=== PATIENT | female | born 1940 | race Caucasian/White ===

== ENCOUNTER → 2016-09-19 06:33 | Day surgery (SDC) | payer MEDICARE ==
--- NOTE | 2016-09-18 00:53 | HP ---
ADMITTING HISTORY AND PHYSICAL: DATE OF ADMISSION: 09/19/16 AGE: 76 years. SEX: Female. ADMITTING DIAGNOSES: 1. Hematuria. 2. Bilateral renal calculi. PLANNED PROCEDURES: Left ureteroscopy, pyeloscopy, possible laser lithotripsy, and left stent insertion. SURGEON: Warner Hernandez MD ADMITTING HISTORY AND PHYSICAL: Lu Vasquez is a 76-year-old lady with morbid obesity who has been noted to have bilateral large renal calculi. She has been having episodic gross hematuria while she had been on the Xarelto and now even while she is off the Xarelto. In addition, she had an episode of left flank pain and is known to have a 15- to 16-mm fairly large calculus in the left renal pelvis. In addition, she has multiple right renal calculi also. She is now being brought in for management of the left renal calculi. Because of the large size and multiple number of calculi, I have explained to her that she may require multiple procedures in an effort to try and render her stone free. PAST MEDICAL HISTORY: Significant for: 1. Hypertension. 2. Peripheral venous insufficiency. 3. Hypercholesterolemia. 4. Sleep apnea. MEDICATIONS ON ADMISSION: 1. Lopressor 100 mg twice a day. 2. Avapro 300 mg daily. 3. Simvastatin 40 mg daily. 4. Vitamin E 400 units daily. 5. Procardia XL 30 mg daily. 6. Aspirin 81 mg a day. 7. Hydrochlorothiazide 12.5 mg a day. ALLERGIES: 1. SULFA. 2. PENICILLIN. 3. INTRAVENOUSLY ADMINISTERED IODINATED CONTRAST. PHYSICAL EXAMINATION GENERAL: Exam reveals a pleasant overweight lady. VITAL SIGNS: Blood pressure is 138/92, pulse 64 per minute, and oxygen saturation 95% on room air. LUNGS: Clear bilaterally. CARDIOVASCULAR EXAM: Regular rate and rhythm. S1, S2. ABDOMEN: Obese with mild bilateral flank tenderness. IMPRESSION: A 76-year-old lady with episodic gross hematuria and recent left flank pain who has a large calculus in the left renal pelvis and additional bilateral renal calculi. PLAN/RECOMMENDATIONS: Planned procedure is ureteroscopy, pyeloscopy, and possible laser and left stent insertion. CC: Dakota Pritchard MD; Warner Hernandez MD * [id number]/[facility] #: [id number] [facility]
[~2016-09-19 06:33] MED LIST: Atracurium* 10 MG/ML 10 ML VIAL ONE; Atropine 1MG/ML INJ* 1 ML VIAL ONE; Buffered Lidocaine 1% SYRIN* 3 ML/SYR SYRINGE INTRADERM ONE; DiMENhydriNATE IV* 50 MG/ML VIAL IV PUSH PRN; Furosemide IV* 10 MG/ML 2 ML VIAL (20 MG) ONE; Glycopyrrolate IV* 0.2 MG/ML 1 ML VIAL ONE; Iohexol 180 (CONTRAST) 10 ML SDV IV ONE; Levofloxacin 500 MG IVPREMIX(* 500 MG/100 ML BAG IVPB ONE; Midazolam* 1 MG/ML 2 ML VIAL (2 MG) ONE; Neostigmine Methylsulfate* 2 MG/2 ML SYRINGE ONE; Ondansetron INJ* 2 MG/ML VIAL IV PRN; Propofol* 10 MG/ML 20 ML BTL IV PUSH ONE; fentaNYL* 50 MCG/ML 2 ML VIAL (100 MCG VIAL) IV PRN; fentaNYL* 50 MCG/ML 2 ML VIAL (100 MCG VIAL) ONE; oxyCODONE/Acetamin 5/325 MG* TAB ONE
--- NOTE | 2016-09-19 10:09 | RAD ---
INDICATION: Bilateral urolithiasis. Bilateral retrograde pyelogram, LEFT ureteroscopy, laser lithotripsy, and stent placement. RIGHT stent placement. COMPARISON: August 10, 2016 CT. TECHNIQUE: 30 seconds fluoroscopy. FINDINGS: LEFT retrograde pyelogram demonstrates only mild calyceal blunting. LEFT ureteral stent placed. RIGHT retrograde pyelogram demonstrates moderate calyceal blunting. RIGHT ureteral stent placed. IMPRESSION: Procedural fluoroscopy. CPT II Codes: 6045F
[2016-09-19 12:09] VITALS: BP 152/86
--- NOTE | 2016-09-19 13:16 | RAD ---
Indication: Postop stent placement 2 views of the abdomen demonstrates bilateral ureteral stents in place. When compared to September 14, 2016 bowel gas pattern is otherwise unremarkable. IMPRESSION: Satisfactory placement of both ureteral stents.
--- NOTE | 2016-09-20 01:52 | OP ---
DATE OF OPERATION: 09/19/16 - [facility] DATE OF : 40 - AGE: 76 years, female SURGEON: Warner Hernandez MD ANESTHESIOLOGIST: Harrison Phelps MD ANESTHESIA: General. PRE-OP DIAGNOSES: 1. Bilateral renal calculi. 2. Gross hematuria. POST-OP DIAGNOSES: 1. Bilateral renal calculi. 2. Gross hematuria. OPERATIVE PROCEDURE: 1. Cystoscopy, left retrograde pyelogram, left ureteroscopy, left pyeloscopy, laser lithotripsy of multiple left renal calculi, and left stent insertion. 2. Right retrograde pyelogram and right stent insertion. INDICATIONS: Lu Vasquez is a 76-year-old lady with a history of bilateral renal calculi and episodic gross hematuria and bilateral flank pain. She is being brought in for management of the left-sided renal calculi today and my plan is to address the right side at a later date. COMPLICATIONS: None. STENT USED: 8.5-Greek 28-cm silicone stent, left side; 8-Greek stent, right side. OPERATIVE FINDINGS: 1. Edema and inflammation surrounding right orifice with right hydronephrosis and proximal hydroureter. 2. Multiple large renal calculi in upper pole, left kidney. POSTOPERATIVE CONDITION: Stable. DESCRIPTION OF PROCEDURE: After induction of general anesthesia, cystoscopy was performed. On examination, it was noted that there was considerable edema and inflammation surrounding the right orifice suggesting that there may be calculus within the right ureter. This was an unexpected finding and I addressed this after completion of the left side of the procedure as well following the dictation. Left retrograde pyelogram revealed multiple filling defects in the upper pole collecting system on the left side. There was no evidence of obstruction on the left side. An access sheath was introduced into the left ureter and then flexible ureteroscope was introduced. The flexible ureteroscope was advanced into the upper pole of the left kidney after completion of pyeloscopy and a cluster of multiple calculi were noted in the upper pole of the left kidney. Using the 370-micron holmium laser, these were fragmented and laser lithotripsy was successful as almost all of the stones broke up into multiple fragments. The stones had dark yellow color and may represent uric acid calculi. Once this was done, an 8.5-Greek, 28- cm silicone stent was introduced on the left side with good proximal and distal positioning obtained. Next, because of the inflammatory changes surrounding the right orifice, a right retrograde pyelogram was performed. This revealed right hydronephrosis with dilated tortuous proximal right ureter. An 8-Greek stent was introduced and positioned under fluoroscopy with good proximal and distal positioning obtained. My plan is to bring her back in a few weeks to try and do a ureteroscopy on the right side and try to address the stones on the right side. She may well require additional procedures for both sides as there are multiple large bilateral renal calculi. The patient tolerated the procedure satisfactorily and was transferred back to recovery area in stable condition. CC: Dr. Dakota Pritchard* [id number]/[facility] #: [id number] SANDI
== END | disposition home or self-care (01) ==
LOC: OR 06:33
PROVIDERS: ATTEND Urology
DX: N13.2 Hydronephrosis with renal and ureteral calculous obstruction (principal); R31.0 Gross hematuria; Z79.82 Long term (current) use of aspirin; G47.33 Obstructive sleep apnea (adult) (pediatric); E66.01 Morbid (severe) obesity due to excess calories; I10 Essential (primary) hypertension; E78.00 Pure hypercholesterolemia, unspecified; I73.9 Peripheral vascular disease, unspecified; Z88.0 Allergy status to penicillin; Z91.041 Radiographic dye allergy status
CPT/HCPCS: 74000; 74420; A9270-GY; C1876; J0461; J1580; J1940; J1956; J2250; J2704; J3010

== ENCOUNTER 2016-10-26 07:26 | Day surgery (SDC) | payer MEDICARE ==
--- NOTE | 2016-10-04 08:06 | HP ---
ADMITTING HISTORY AND PHYSICAL: DATE OF ADMISSION/OPERATION: 10/26/16 ADMITTING DIAGNOSIS: Bilateral renal calculi. PLANNED PROCEDURE: Right ureteroscopy, pyeloscopy, possible laser and right stent replacement. SURGEON: Dr. Hernandez. ADMITTING HISTORY AND PHYSICAL: Lu Vasquez is a 76-year-old lady with bilateral large renal calculi and recurrent episodes of hematuria. She had undergone treatment of multiple left renal calculi and at that time had also undergone right stent insertion. She subsequently underwent left stent removal on October 03 in my office and is now being brought in for management of the right-sided calculi. PAST MEDICAL HISTORY: Significant for: 1. Renal calculi. 2. Hypercholesterolemia. 3. Hypertension. 4. Peripheral venous insufficiency. 5. Sleep apnea. MEDICATIONS ON ADMISSION: 1. Potassium citrate 20 mEq twice a day. 2. Lopressor 100 mg b.i.d. 3. Simvastatin 40 mg a day. 4. Avapro 300 mg once a day. 5. Procardia XL 30 mg daily. 6. Aspirin 81 mg a day. 7. Vitamin E 400 units daily. 8. Hydrochlorothiazide 12.5 mg a day. ALLERGIES AND INTOLERANCES: SULFA, INTRAVENOUSLY ADMINISTERED IODINATED CONTRAST, PENICILLIN. PHYSICAL EXAMINATION GENERAL: Reveals a pleasant, morbidly obese lady. VITAL SIGNS: Blood pressure is 140/90, pulse 55 per minute, oxygen saturation 97%, and temperature 96.5. LUNGS: Clear bilaterally. CARDIOVASCULAR: Regular rate and rhythm. S1, S2. ABDOMEN: Soft with bilateral flank tenderness. IMPRESSION: A 76-year-old lady who had previously undergone treatment of left - sided calculi and is now being brought in for right ureteroscopy, pyeloscopy, possible laser and stent replacement. CC: Dr. Pritchard; Dr. Hernandez* [id number]/[facility] #: [id number] [facility]
[~2016-10-26 07:26] MED LIST changes: -Atracurium* 10 MG/ML 10 ML VIAL ONE; -Atropine 1MG/ML INJ* 1 ML VIAL ONE; +Dexamethasone IV* 4 MG/ML 1 ML (4 MG) IV SLOW PU ONE; -DiMENhydriNATE IV* 50 MG/ML VIAL IV PUSH PRN; +Famotidine IV* 10 MG/ML 2 ML (20 mg) IV ONE; -Furosemide IV* 10 MG/ML 2 ML VIAL (20 MG) ONE; -Glycopyrrolate IV* 0.2 MG/ML 1 ML VIAL ONE; -Iohexol 180 (CONTRAST) 10 ML SDV IV ONE; -Levofloxacin 500 MG IVPREMIX(* 500 MG/100 ML BAG IVPB ONE; -Midazolam* 1 MG/ML 2 ML VIAL (2 MG) ONE; -Neostigmine Methylsulfate* 2 MG/2 ML SYRINGE ONE; -Ondansetron INJ* 2 MG/ML VIAL IV PRN; -Propofol* 10 MG/ML 20 ML BTL IV PUSH ONE; -fentaNYL* 50 MCG/ML 2 ML VIAL (100 MCG VIAL) IV PRN; -fentaNYL* 50 MCG/ML 2 ML VIAL (100 MCG VIAL) ONE; -oxyCODONE/Acetamin 5/325 MG* TAB ONE
[2016-10-26] MEDS ORDERED: HYDROmorphone* 1 MG/ML 1 ML SYR ONE ×2 (07:33→09:46)
[2016-10-26] MEDS ORDERED: fentaNYL* 50 MCG/ML 2 ML VIAL (100 MCG VIAL) ONE ×3 (07:33→11:11)
[2016-10-26] MEDS ORDERED: Midazolam* 1 MG/ML 5 ML VIAL (5 MG) ONE (07:37)
[2016-10-26] MEDS ORDERED: Ondansetron INJ* 2 MG/ML VIAL ONE (07:52)
[2016-10-26] MEDS ORDERED: Propofol* 10 MG/ML 20 ML BTL IV PUSH ONE (07:52)
[2016-10-26] MEDS ORDERED: Lidocaine 2% PF * 5 ML VIAL ONE (07:52)
[2016-10-26] MEDS ORDERED: Ketorolac INJ* 30 MG/ML 1 ML VIAL ONE (07:52)
[2016-10-26] MEDS ORDERED: Succinylcholine* 20 MG/ML 10 ML VIAL ONE (07:52)
[2016-10-26] MEDS ORDERED: Famotidine IV* 10 MG/ML 2 ML (20 mg) ONE (08:08)
[2016-10-26] MEDS ORDERED: Dexamethasone IV* 4 MG/ML 1 ML (4 MG) ONE (08:08)
[2016-10-26] MEDS ORDERED: Dexmedetomidine* 200 MCG/2 ML 2 ML VIAL ONE (08:43)
[2016-10-26] MEDS ORDERED: Levofloxacin 500 MG IVPREMIX(* 500 MG/100 ML BAG IVPB ONE (09:04)
[2016-10-26] MEDS ORDERED: Iohexol 180 (CONTRAST) 10 ML SDV IV ONE (09:12)
[2016-10-26] MEDS ORDERED: Meperidine SYRINGE* 50 MG/ML ONE (10:01)
[2016-10-26] MEDS ORDERED: Ondansetron INJ* 2 MG/ML VIAL IV PRN (11:33)
[2016-10-26] MEDS ORDERED: PROCHLORPERAZINE INJ 5 MG/ML 2 ML VIAL IV PRN (11:33)
[2016-10-26] MEDS ORDERED: HYDROmorphone* 1 MG/ML 1 ML SYR IV PRN (11:33)
[2016-10-26] MEDS ORDERED: DiMENhydriNATE IV* 50 MG/ML VIAL IV PUSH PRN (11:33)
[2016-10-26] MEDS ORDERED: fentaNYL* 50 MCG/ML 2 ML VIAL (100 MCG VIAL) IV PRN (11:33)
[2016-10-26 13:33] VITALS: BP 146/60
--- NOTE | 2016-10-27 01:18 | OP ---
DATE OF OPERATION: 10/26/16 - [facility] DATE OF : 40 - AGE: 76 years, female. SURGEON: Warner Hernandez MD ANESTHESIOLOGIST: Dr. Burnett. ANESTHESIA: General. PRE-OP DIAGNOSIS: Multiple right renal calculi. POST-OP DIAGNOSIS: Multiple right renal calculi. OPERATIVE PROCEDURE: 1. Cystoscopy right retrograde pyelogram. 2. Right ureteroscopy. 3. Right pyeloscopy. 4. Laser lithotripsy of multiple right renal calculi and right stent insertion. COMPLICATIONS: None. STENT USED: 8.5 Prydeinig 28 cm silicone stent, right ureter. OPERATIVE FINDINGS: Multiple large calculi in upper pole calyx, right kidney. INDICATIONS: Lu Vasquez is a 76-year-old lady who was evaluated and noted to have bilateral renal calculi. She had previously undergone successful treatment of left- sided renal calculi and is now being brought in for management of multiple right renal calculi. DESCRIPTION OF PROCEDURE: After induction of general anesthesia, the patient was placed in dorsal lithotomy position. Sequential compression devices were in place and functioning. Initial cystoscopy revealed a previously placed stent exiting from the right orifice and this was removed intact without difficulty. Retrograde pyelogram revealed mild fullness of the right collecting system. First, a 6-Prydeinig semirigid ureteroscope was introduced and advanced under direct vision into the renal pelvis, but I could not visualize any calculi in the ureter or renal pelvis. Next, an access sheath was introduced and through this, a flexible ureteroscope was advanced into the right kidney. In an upper pole calyx, there were multiple large calculi noted. These had an appearance consistent with uric acid calculi (dark yellow) and using a 370 micron laser, these were successfully fragmented. At the end of the procedure, the calculi appeared fragmented and I did not attempt to remove any of the fragments because of the very large number of stone fragments that were there. An 8.5 Prydeinig 28 cm silicone stent was introduced and positioned under fluoroscopy with good proximal and distal positioning obtained. The patient tolerated the procedure satisfactorily and was transferred back to the recovery area in stable condition. CC: Dr. Pritchard* [id number]/[facility] #: [id number] [facility]
--- NOTE | 2016-10-29 11:55 | RAD ---
CPT II Codes: 6045F Indication: Renal calculi Fluoroscopic services provided for referring physician. 37 seconds of fluoroscopy time was used. 12 spot images demonstrates placement of a right ureteral stent. Right retrograde hilar gram demonstrates right hydronephrosis. IMPRESSION: Fluoroscopic services provided for referring physician for right ureteral stent placement.
== END 2016-10-26 13:34 | disposition home or self-care (01) ==
LOC: OR 07:26
PROVIDERS: ATTEND Urology
DX: N20.0 Calculus of kidney (principal); I10 Essential (primary) hypertension; E78.00 Pure hypercholesterolemia, unspecified; G47.30 Sleep apnea, unspecified; I73.9 Peripheral vascular disease, unspecified; E66.01 Morbid (severe) obesity due to excess calories
CPT/HCPCS: 74420; C1876; J0330; J1100; J1170; J1580; J1885; J1956; J2250; J2405; J2704; J3010

== ENCOUNTER 2018-02-05 09:22 | Day surgery (SDC) | payer MEDICARE ==
[~2018-02-05 09:22] MED LIST changes: +Acetaminophen TAB* 325 MG PO PRN; +Buffered Lidocaine 0.9% SYRIN* 5 ML/SYR SYRINGE INTRADERM ONE; -Buffered Lidocaine 1% SYRIN* 3 ML/SYR SYRINGE INTRADERM ONE; -Dexamethasone IV* 4 MG/ML 1 ML (4 MG) IV SLOW PU ONE; -Famotidine IV* 10 MG/ML 2 ML (20 mg) IV ONE
[2018-02-05] MEDS ORDERED: Midazolam* 1 MG/ML 2 ML VIAL (2 MG) ONE ×2 (11:21→11:48)
[2018-02-05 12:17] VITALS: BP 152/55
[2018-02-05] MEDS ORDERED: acetaZOLAMIDE TAB* 250 MG ONE (14:40)
[2018-02-05] MEDS ORDERED: Proparacaine 0.5% OPHTH.SOL* 15 ML BTL ONE (14:40)
[2018-02-05] MEDS ORDERED: Cyclopentolate 1% OPTH.SOL* 2 ML BTL ONE (14:40)
[2018-02-05] MEDS ORDERED: Povidone Iodine 5% OPTH* 30 ML BTL ONE (14:40)
[2018-02-05] MEDS ORDERED: Lidocaine 1%* 5 ML VIAL ONE (14:40)
[2018-02-05] MEDS ORDERED: Neomycin/Polymy/Dex OPTH.SUSP* MAXITROL 0.1% 5 ML ONE (14:40)
[2018-02-05] MEDS ORDERED: Phenylephrine 2.5% OPTH.SOL* 2 ML BTL ONE (14:40)
[2018-02-05] MEDS ORDERED: Ketorolac 0.5% OPHTH (NF) 0.5 % 5 ML BTL ONE (14:40)
[2018-02-05] MEDS ORDERED: Lidocaine 2% EPI 1:200000 MPF*10-20 ML VIAL ONE (14:40)
--- NOTE | 2018-02-05 23:34 | OP ---
DATE OF OPERATION: 02/05/18 [facility] DATE OF : 40 SURGEON: Pietro Clark M.D. PREOPERATIVE DIAGNOSIS: Cataract, right eye. POSTOPERATIVE DIAGNOSIS: Cataract, right eye. OPERATIVE PROCEDURE: Extracapsular cataract extraction with intraocular lens implant right eye. DESCRIPTION OF PROCEDURE: The patient was brought to the operating room after being given 1/2% Alcaine with epinephrine drops in the preoperative area. The eye was prepped and draped in the usual sterile fashion. Sterile drape and eyelid speculum were placed. Again, topical 1/2% Alcaine with epinephrine was given. A paracentesis incision was made at the 9 o'clock position with the No.75 blade. Clear cornea incision 2.2 x 2.2-mm was created at the 12 o'clock position starting at the anterior limbus using the 2.2-mm keratome. The anterior chamber was irrigated with 0.4 mL of 1% non-preservative intracameral lidocaine and filled with DisCoVisc. A capsulorrhexis was completed using the cystotome and the Utrata forceps. Hydrodissection was performed with balanced salt solution. The lens nucleus was removed with the Phacoemulsification handpiece without incident. Cortex was removed with the irrigation-aspiration handpiece. The capsular bag was re-inflated using DisCoVisc and an SN60WF 22.5 implant was inserted with the shooter. The irrigation-aspiration handpiece was used to remove all residual DisCoVisc. The eye was refilled with balanced salt solution and the wound checked and found to be watertight. Topical Maxitrol drops were given. [id number]/[facility] #: [id number] [facility]
== END 2018-02-05 12:29 | disposition home or self-care (01) ==
LOC: OREAST 09:22
PROVIDERS: ATTEND Specialist
DX: H25.811 Combined forms of age-related cataract, right eye (principal); H53.021 Refractive amblyopia, right eye; I10 Essential (primary) hypertension; E78.00 Pure hypercholesterolemia, unspecified; Z88.0 Allergy status to penicillin; G47.33 Obstructive sleep apnea (adult) (pediatric)
CPT/HCPCS: A9270-GY; J2250; V2632

== ENCOUNTER 2018-02-12 09:26 | Day surgery (SDC) | payer MEDICARE ==
[~2018-02-12 09:26] MED LIST changes: +Midazolam* 1 MG/ML 5 ML VIAL (5 MG) ONE; +fentaNYL* 50 MCG/ML 2 ML VIAL (100 MCG VIAL) ONE
[2018-02-12 11:45] VITALS: BP 144/59
[2018-02-12] MEDS ORDERED: Povidone Iodine 5% OPTH* 30 ML BTL ONE (14:28)
[2018-02-12] MEDS ORDERED: Cyclopentolate 1% OPTH.SOL* 2 ML BTL ONE (14:28)
[2018-02-12] MEDS ORDERED: Lidocaine 1%* 5 ML VIAL ONE (14:28)
[2018-02-12] MEDS ORDERED: Lidocaine 2% EPI 1:200000 MPF*10-20 ML VIAL ONE (14:28)
[2018-02-12] MEDS ORDERED: Ketorolac 0.5% OPHTH (NF) 0.5 % 5 ML BTL ONE (14:28)
[2018-02-12] MEDS ORDERED: Neomycin/Polymy/Dex OPTH.SUSP* MAXITROL 0.1% 5 ML ONE (14:28)
[2018-02-12] MEDS ORDERED: acetaZOLAMIDE TAB* 250 MG ONE (14:28)
[2018-02-12] MEDS ORDERED: Phenylephrine 2.5% OPTH.SOL* 2 ML BTL ONE (14:28)
[2018-02-12] MEDS ORDERED: Proparacaine 0.5% OPHTH.SOL* 15 ML BTL ONE (14:29)
--- NOTE | 2018-02-13 10:34 | OP ---
OPERATIVE REPORT: DATE OF OPERATION: 02/12/18 - [facility] DATE OF : 40 SURGEON: Pietro Clark M.D. PRE-OP DIAGNOSIS: Cataract, left eye. POST-OP DIAGNOSIS: Cataract, left eye. OPERATIVE PROCEDURE: Extracapsular cataract extraction with intraocular lens implant, left eye. DESCRIPTION OF PROCEDURE: The patient was brought to the operating room after being given 1/2% Alcaine with epinephrine drops in the preoperative area. The eye was prepped and draped in the usual sterile fashion. Sterile drape and eyelid speculum were placed. Again, topical 1/2% Alcaine with epinephrine was given. A paracentesis incision was made at the 3 o'clock position with the No.75 blade. Clear cornea incision 2.2 x 2.2-mm was created at the 6 o'clock position starting at the anterior limbus using the 2.2-mm keratome. The anterior chamber was irrigated with 0.4 mL of 1% non-preservative intracameral lidocaine and filled with DisCoVisc. A capsulorrhexis was completed using the cystotome and the Utrata forceps. Hydrodissection was performed with balanced salt solution. The lens nucleus was removed with the Phacoemulsification handpiece without incident. Cortex was removed with the irrigation-aspiration handpiece. The capsular bag was re-inflated using DisCoVisc and an [id number] 21 implant was inserted with the shooter. The irrigation-aspiration handpiece was used to remove all residual DisCoVisc. The eye was refilled with balanced salt solution and the wound checked and found to be watertight. Topical Maxitrol drops were given. [id number]/[facility] #: [id number] MTDD
== END 2018-02-12 11:50 | disposition home or self-care (01) ==
LOC: OREAST 09:26
PROVIDERS: ATTEND Specialist
DX: H25.812 Combined forms of age-related cataract, left eye (principal); H53.021 Refractive amblyopia, right eye; I10 Essential (primary) hypertension; G47.33 Obstructive sleep apnea (adult) (pediatric); E78.5 Hyperlipidemia, unspecified; I87.2 Venous insufficiency (chronic) (peripheral); R60.9 Edema, unspecified
CPT/HCPCS: A9270-GY; J2250; J3010; V2632

== ENCOUNTER 2018-07-02 10:27 | Emergency (ER) | payer MEDICARE ==
--- NOTE | 2018-07-02 10:55 | ED ---
Laceration/Wound HPI - HPI Summary HPI Summary: 78 year old female presents with laceration to left elbow. States that she was walking to sign in for her wound care appointment and she tripped over the rug. She states she landed on her left elbow against the desk. She denies any head injury or loss consciousness. Denies any other pain. Has full range of motion of her elbow. No numbness or tingling. Denies any previous fracture to the area. She states she believes her tetanus up-to-date. Area is not actively bleeding. She is not on any blood thinners. - History of Current Complaint Stated Complaint: FELL, LAC ON ARM Time Seen by Provider: 07/02/18 10:40 Pain Intensity: 3 - Allergy/Home Medications Allergies/Adverse Reactions: Allergies Allergy/AdvReac Type Severity Reaction Status Date / Time Iodinated Contrast- Oral and Allergy Severe Anaphylatic Verified 07/02/18 10:28 IV Dye Shock Penicillins Allergy Unknown Unknown Verified 07/02/18 10:28 Reaction Details Sulfa (Sulfonamide Allergy Unknown Unknown Verified 07/02/18 10:28 Antibiotics) Reaction Details PMH/Surg Hx/FS Hx/Imm Hx Endocrine/Hematology History: Denies: Hx Diabetes Cardiovascular History: Reports: Hx Hypertension - on meds, Other Cardiovascular Problems/Disorders - hyperlipidemia, peripheral venous insufficiency Denies: Hx Valvular Heart Disease Respiratory History: Reports: Hx Sleep Apnea - c pap Denies: Other Respiratory Problems/Disorders GI History: Denies: Other GI Disorders History: Reports: Hx Kidney Stones - hx of bilateral renal calculi Musculoskeletal History: Reports: Hx Arthritis - finger Denies: Other Musculoskeletal History Sensory History: Reports: Hx Cataracts - no surgery yet, Hx Contacts or Glasses - glasses Denies: Hx Hearing Aid Opthamlomology History: Reports: Hx Cataracts - no surgery yet, Hx Contacts or Glasses - glasses Neurological History: Denies: Other Neuro Impairments/Disorders - Cancer History Cancer Type, Location and Year: skin none melanoma Hx Chemotherapy: No Hx Radiation Therapy: No - Surgical History Surgery Procedure, Year, and Place: umbilical hernia repair, 2001, [facility] [place]. appendectomy, [facility] [place], 2013. ureteral stent insertion August 2016 - [facility] [place] Hx Anesthesia Reactions: No Infectious Disease History: No Infectious Disease History: Denies: Traveled Outside the [place] in Last 30 Days - Family History Known Family History: Positive: Hypertension - Social History Alcohol Use: None Substance Use Type: Reports: None Smoking Status (MU): Never Smoked Tobacco Review of Systems Negative: Fever Negative: Chest Pain Negative: Shortness Of Breath Positive: Other - abrasion left elbow All Other Systems Reviewed And Are Negative: Yes Physical Exam Triage Information Reviewed: Yes Vital Signs On Initial Exam: Initial Vitals Temp Pulse Resp BP Pulse Ox 98.3 F 60 16 164/61 95 07/02/18 10:28 07/02/18 10:28 07/02/18 10:28 07/02/18 10:28 07/02/18 10:28 Vital Signs Reviewed: Yes Appearance: Positive: Well-Appearing Skin: Positive: Warm, Dry, Other - abrasion on left elbow Head/Face: Positive: Normal Head/Face Inspection Eyes: Positive: Normal, Conjunctiva Clear ENT: Positive: Pharynx normal Respiratory/Lung Sounds: Positive: Clear to Auscultation, Breath Sounds Present Cardiovascular: Positive: Normal, RRR Musculoskeletal: Positive: Strength/ROM Intact - left elbow, Other - good pulses , nontender left elbow Neurological: Positive: Normal Psychiatric: Positive: Normal Procedures - Laceration/Wound Repair 1 Location: Other - left elbow Description: Irregular Length, Depth and Shape: 3cm by 2cm abrasion Irrigated w/ Saline (ccs): 100 Closure: Skin Adhesive, SteriStrips Diagnostics - Vital Signs Vital Signs Temp Pulse Resp BP Pulse Ox 07/02/18 10:28 98.3 F 60 16 164/61 95 - Laboratory Lab Statement: Any lab studies that have been ordered have been reviewed, and results considered in the medical decision making process. Laceration Repair Course/Dx - Course Course Of Treatment: 78 year old female presents with laceration to left elbow. States that she was walking to sign in for her wound care appointment and she tripped over the rug. She states she landed on her left elbow against the desk. She denies any head injury or loss consciousness. Denies any other pain. Has full range of motion of her elbow. No numbness or tingling. Denies any previous fracture to the area. She states she believes her tetanus up-to- date. Area is not actively bleeding. She is not on any blood thinners. On exam has recently 2 cm by 3cm abrasion to left elbow. Full range of motion. Neurovascular intact. Clean area and place glue and Steri-Strips. Told to keep the area clean and dry. Patient declined x-ray. Told anything changes to return. Patient understands agrees plan. - Clinical Impression Provider Diagnoses: Abrasion of left elbow Discharge - Sign-Out/Discharge Documenting (check all that apply): Patient Departure - Discharge Plan Condition: Good Disposition: HOME Patient Education Materials: Skin Adhesive Care (ED) Referrals: Dakota Pritchard MD [Primary Care Provider] - Additional Instructions: Place ice on area Take Tylenol for pain as needed every 6 hours Keep as dry as possible for 24 hours Glue will fall off on own Avoid scrubbing area Return to ED if develop any signs of infection or any new or worsening symptoms - Billing Disposition and Condition Condition: GOOD Disposition: Home
[2018-07-02 11:36] VITALS: BP 150/64
== END 2018-07-02 11:35 | disposition home or self-care (01) ==
LOC: ED 10:27
DX: S51.012A Laceration without foreign body of left elbow, initial encounter (principal); W01.0XXA Fall on same level from slipping, tripping and stumbling without subsequent striking against object, initial encounter; Y93.01 Activity, walking, marching and hiking; Y92.238 Other place in hospital as the place of occurrence of the external cause; I10 Essential (primary) hypertension; Z88.0 Allergy status to penicillin; Z88.2 Allergy status to sulfonamides; Z91.041 Radiographic dye allergy status
CPT/HCPCS: 12002; 99282

== ENCOUNTER 2021-06-14 12:22 | Inpatient (IN) ==
[2021-06-14 15:58] LABS: ABS Lymphocytes 0.5 10^3/ul (1.0-4.8); ABS Monocytes 1.1 10^3/ul (0-0.8); ABS Neutrophils 9.5 10^3/ul (1.5-7.7); Eosinophil % 0.2 %; Hematocrit 42 % (35-47); Hemoglobin 13.5 g/dL (12.0-16.0); Lymphocyte % 4.4 %; Mean Corpuscular HGB Conc 33 g/dL (31-36); Mean Corpuscular Hemoglobin 29 pg (27-31); Mean Corpuscular Volume 89 fL (80-97); Mean Platelet Volume 7.5 fL (7.4-10.4); Platelet Count 259 10^3/uL (150-450); Red Blood Count 4.67 10^6 /uL (3.70-4.87); Red Cell Distribution Width 16 % (10-15)
[2021-06-14 16:23] LABS: Troponin I 0.13 ng/mL (<0.03)
[2021-06-14 16:27] LABS: ALT 82 U/L (7-52); AST 125 U/L (13-39); Albumin 2.8 g/dL (3.2-5.2); Alkaline Phosphatase 75 U/L (35-149); Anion Gap 8 mmol/L (2-11); Blood Urea Nitrogen 40 mg/dL (6-24); CO2 Carbon Dioxide 25 mmol/L (22-32); Calcium 8.4 mg/dL (8.6-10.3); Chloride 108 mmol/L (101-111); Globulin 2.8 g/dL (2-4); Glucose 105 mg/dL (70-100); Magnesium 2.3 mg/dL (1.9-2.7); Potassium 3.8 mmol/L (3.5-5.0); Sodium 141 mmol/L (135-145); Total Protein 5.6 g/dL (6.4-8.9); eGFR CKD-EPI 34.5 (>60)
[2021-06-14 16:42] LABS: TSH Ultra Thyroid Stim Horm 1.14 mcIU/mL (0.34-5.60)
[2021-06-14] MEDS ORDERED: Lactated Ringers 1000 ml BAG 1,000 ML IV ONE (17:31)
[2021-06-14 18:56] LABS: Troponin I 0.11 ng/mL (<0.03)
[2021-06-14 18:57] LABS: Creatine Kinase 2726 U/L (10-223)
[2021-06-14 21:22] LABS: Troponin I 0.08 ng/mL (<0.03)
[2021-06-14] MEDS: Enoxaparin 40 MG/0.4 ML SYR SUBCUT SCH (22:42)
[2021-06-15] MEDS: CMCS: Simvastatin 20 mg TAB (NF) PO SCH ×2 (00:09→22:34)
[2021-06-15] MEDS ORDERED: Clindamycin 600 MG/D5W BAG IV SCH (05:00)
[2021-06-15 05:51] LABS: ABS Lymphocytes 0.5 10^3/ul (1.0-4.8); ABS Monocytes 1.1 10^3/ul (0-0.8); Eosinophil % 0.5 %; Hematocrit 35 % (35-47); Hemoglobin 11.4 g/dL (12.0-16.0); Lymphocyte % 6.1 %; Mean Corpuscular HGB Conc 33 g/dL (31-36); Mean Corpuscular Hemoglobin 29 pg (27-31); Mean Corpuscular Volume 89 fL (80-97); Mean Platelet Volume 7.8 fL (7.4-10.4); Platelet Count 221 10^3/uL (150-450); Red Blood Count 3.88 10^6 /uL (3.70-4.87); Red Cell Distribution Width 16 % (10-15); White Blood Count 8.7 10^3/uL (3.5-10.8)
[2021-06-15 06:04] LABS: Albumin 2.1 g/dL (3.2-5.2); Calcium 7.3 mg/dL (8.6-10.3); Potassium 3.6 mmol/L (3.5-5.0); Total Bilirubin 0.5 mg/dL (0.2-1.0)
[2021-06-15 06:10] LABS: Albumin/Globulin Ratio 1.1 (1-3); Total Protein 4.1 g/dL (6.4-8.9); eGFR CKD-EPI 38.1 (>60)
[2021-06-15] MEDS: Cholecalciferol (VIT D3) 1,000 unit TAB PO SCH (10:35)
[2021-06-15 19:17] LABS: Urine Appearance Cloudy; Urine Bilirubin Negative (Negative); Urine Blood 2+ (Negative); Urine Color Amber; Urine Glucose Negative (Negative); Urine Ketones Negative (Negative); Urine Nitrite Negative (Negative); Urine Protein Negative (Negative); Urine Specific Gravity 1.017 (1.002-1.030); Urine Urobilinogen Negative (Negative)
[2021-06-15 20:02] LABS: Urine Red Blood Cell 3+(>10/hpf) (Absent)
[2021-06-15 20:03] LABS: Urine Bacteria 2+ (Absent); Urine Squamous Epithelial Cell Present (Absent); Urine White Blood Cell 1+(6-10/hpf) (Absent)
[2021-06-15] MEDS: Enoxaparin 40 MG/0.4 ML SYR SUBCUT SCH (22:33)
[2021-06-16] MEDS: Bacitracin OINTMENT TUBE TOPICAL SCH ×2 (05:28→20:58)
[2021-06-16] MEDS: Collagenase 250 units/gm OINT 1 tube TOPICAL SCH ×2 (05:29→20:58)
[2021-06-16 06:41] LABS: ABS Eosinophils 0.1 10^3/ul (0-0.6); ABS Lymphocytes 0.6 10^3/ul (1.0-4.8); ABS Neutrophils 7.4 10^3/ul (1.5-7.7); Eosinophil % 1.6 %; Hematocrit 34 % (35-47); Hemoglobin 11.2 g/dL (12.0-16.0); Lymphocyte % 6.3 %; Mean Corpuscular HGB Conc 33 g/dL (31-36); Mean Corpuscular Hemoglobin 29 pg (27-31); Mean Corpuscular Volume 88 fL (80-97); Mean Platelet Volume 7.6 fL (7.4-10.4); Platelet Count 226 10^3/uL (150-450); Red Cell Distribution Width 16 % (10-15); White Blood Count 9.1 10^3/uL (3.5-10.8)
[2021-06-16 07:10] LABS: Calcium 7.2 mg/dL (8.6-10.3); Globulin 2.1 g/dL (2-4); Potassium 3.4 mmol/L (3.5-5.0); Total Bilirubin 0.4 mg/dL (0.2-1.0); Total Protein 4.1 g/dL (6.4-8.9); eGFR CKD-EPI 42.9 (>60)
[2021-06-16] MEDS ORDERED: Potassium Chlor 20 meq TAB.ER PO ONE (08:08)
[2021-06-16 10:15] LABS: Hepatitis B Surface Antigen Nonreactive (Nonreactive)
[2021-06-16 10:20] LABS: Hepatitis A Ab IgM Negative (Negative)
[2021-06-16 10:21] LABS: Hepatitis B Core IgM Nonreactive (Nonreactive)
[2021-06-16 10:33] LABS: Hepatitis C Antibody Negative (Negative)
[2021-06-16] MEDS: Cholecalciferol (VIT D3) 1,000 unit TAB PO SCH (10:56)
[2021-06-16] MEDS: CMCS: Simvastatin 20 mg TAB (NF) PO SCH (20:57)
[2021-06-16] MEDS: Enoxaparin 40 MG/0.4 ML SYR SUBCUT SCH (20:57)
[2021-06-17 07:10] LABS: Calcium 7.5 mg/dL (8.6-10.3); Potassium 3.9 mmol/L (3.5-5.0); eGFR CKD-EPI 49.4 (>60)
[2021-06-17 08:35] LABS: Ferritin 184.5 ng/mL (11-307)
[2021-06-17] MEDS: Cholecalciferol (VIT D3) 1,000 unit TAB PO SCH (08:40)
[2021-06-17] MEDS: Bacitracin OINTMENT TUBE TOPICAL SCH (08:42)
[2021-06-17] MEDS: Collagenase 250 units/gm OINT 1 tube TOPICAL SCH (13:59)
[2021-06-17] MEDS: CMCS: Simvastatin 20 mg TAB (NF) PO SCH (21:26)
[2021-06-17] MEDS: Enoxaparin 40 MG/0.4 ML SYR SUBCUT SCH (21:27)
[2021-06-18] MEDS: Cholecalciferol (VIT D3) 1,000 unit TAB PO SCH (08:50)
[2021-06-18] MEDS: Collagenase 250 units/gm OINT 1 tube TOPICAL SCH (08:52)
[2021-06-18] MEDS: Bacitracin OINTMENT TUBE TOPICAL SCH (08:52)
[2021-06-18 11:55] LABS: Calcium 7.4 mg/dL (8.6-10.3); Potassium 3.6 mmol/L (3.5-5.0); eGFR CKD-EPI 34.8 (>60)
[2021-06-18] MEDS ORDERED: NS 0.9% 1000 ml BAG 1,000 ML IV ONE (14:32)
[2021-06-18] MEDS: Enoxaparin 40 MG/0.4 ML SYR SUBCUT SCH (20:59)
[2021-06-18] MEDS: CMCS: Simvastatin 20 mg TAB (NF) PO SCH (20:59)
[2021-06-19 06:04] LABS: Calcium 7.3 mg/dL (8.6-10.3); Potassium 3.5 mmol/L (3.5-5.0); eGFR CKD-EPI 35.6 (>60)
[2021-06-19] MEDS: Cholecalciferol (VIT D3) 1,000 unit TAB PO SCH (08:38)
[2021-06-19] MEDS: Bacitracin OINTMENT TUBE TOPICAL SCH (08:39)
[2021-06-19] MEDS: Collagenase 250 units/gm OINT 1 tube TOPICAL SCH (08:40)
[2021-06-19 09:16] LABS: % Iron Saturation 7 % (14 - 50); Total Iron Binding Capacity 113 mcg/dL (250 - 400); Transferrin 96 mg/dL (200 - 360)
[2021-06-19] MEDS ORDERED: NS 0.9% 500 ml BAG 500 ML IV SCH (17:00)
[2021-06-19] MEDS: Enoxaparin 40 MG/0.4 ML SYR SUBCUT SCH (22:54)
[2021-06-19] MEDS: CMCS: Simvastatin 20 mg TAB (NF) PO SCH (22:55)
[2021-06-20 06:42] LABS: Albumin/Globulin Ratio 0.7 (1-3); Calcium 7.6 mg/dL (8.6-10.3); Globulin 2.7 g/dL (2-4); Potassium 3.4 mmol/L (3.5-5.0); Total Bilirubin 0.5 mg/dL (0.2-1.0); Total Protein 4.7 g/dL (6.4-8.9); eGFR CKD-EPI 41.3 (>60)
[2021-06-20 07:57] LABS: ABS Eosinophils 0.1 10^3/ul (0-0.6); ABS Lymphocytes 0.4 10^3/ul (1.0-4.8); ABS Monocytes 1.2 10^3/ul (0-0.8); Eosinophil % 0.8 %; Hematocrit 33 % (35-47); Hemoglobin 10.6 g/dL (12.0-16.0); Lymphocyte % 3.3 %; Mean Corpuscular HGB Conc 32 g/dL (31-36); Mean Corpuscular Hemoglobin 29 pg (27-31); Mean Corpuscular Volume 89 fL (80-97); Mean Platelet Volume 7.8 fL (7.4-10.4); Platelet Count 287 10^3/uL (150-450); Red Blood Count 3.69 10^6 /uL (3.70-4.87); Red Cell Distribution Width 16 % (10-15); White Blood Count 13.7 10^3/uL (3.5-10.8)
[2021-06-20] MEDS: Cholecalciferol (VIT D3) 1,000 unit TAB PO SCH (08:41)
[2021-06-20] MEDS: Bacitracin OINTMENT TUBE TOPICAL SCH (08:41)
[2021-06-20] MEDS: Collagenase 250 units/gm OINT 1 tube TOPICAL SCH (08:41)
[2021-06-20] MEDS ORDERED: Potassium Chlor 20 meq TAB.ER PO ONE (10:00)
[2021-06-20] MEDS ORDERED: Metoclopramide 5 MG/ML VIAL (10 mg) IV PRN (17:18)
[2021-06-20] MEDS: Enoxaparin 40 MG/0.4 ML SYR SUBCUT SCH (22:42)
[2021-06-20] MEDS: CMCS: Simvastatin 20 mg TAB (NF) PO SCH (22:42)
[2021-06-21 06:57] LABS: ABS Lymphocytes 0.5 10^3/ul (1.0-4.8); ABS Neutrophils 13.5 10^3/ul (1.5-7.7); Eosinophil % 0.1 %; Hematocrit 31 % (35-47); Hemoglobin 10.4 g/dL (12.0-16.0); Lymphocyte % 3.1 %; Mean Corpuscular HGB Conc 33 g/dL (31-36); Mean Corpuscular Hemoglobin 29 pg (27-31); Mean Corpuscular Volume 88 fL (80-97); Mean Platelet Volume 7.4 fL (7.4-10.4); Platelet Count 314 10^3/uL (150-450); Red Blood Count 3.56 10^6 /uL (3.70-4.87); Red Cell Distribution Width 16 % (10-15)
[2021-06-21 07:19] LABS: Albumin 2.1 g/dL (3.2-5.2); Albumin/Globulin Ratio 0.7 (1-3); Calcium 7.7 mg/dL (8.6-10.3); Potassium 3.8 mmol/L (3.5-5.0); Total Bilirubin 0.6 mg/dL (0.2-1.0); Total Protein 5.1 g/dL (6.4-8.9); eGFR CKD-EPI 28.7 (>60)
[2021-06-21] MEDS: Collagenase 250 units/gm OINT 1 tube TOPICAL SCH (08:33)
[2021-06-21] MEDS: Bacitracin OINTMENT TUBE TOPICAL SCH (08:33)
[2021-06-21] MEDS: Cholecalciferol (VIT D3) 1,000 unit TAB PO SCH (08:40)
[2021-06-21 11:33] LABS: C Reactive Protein 273.6 mg/L (<8.01)
[2021-06-21] MEDS ORDERED: NS 0.9% 1000 ml BAG 1,000 ML IV SCH (13:00)
[2021-06-21 13:19] LABS: C Reactive Protein 276.83 mg/L (<8.01)
[2021-06-21] MEDS ORDERED: NS 0.9% 500 ml BAG 500 ML IV ONE (16:42)
[2021-06-21 18:13] LABS: Urine Appearance Turbid; Urine Bilirubin Negative (Negative); Urine Blood 1+ (Negative); Urine Color Yellow; Urine Glucose Negative (Negative); Urine Ketones Negative (Negative); Urine Nitrite Negative (Negative); Urine Protein 2+(100 mg/dL) (Negative); Urine Urobilinogen Negative (Negative)
[2021-06-21 18:19] LABS: Urine Bacteria 2+ (Absent); Urine Red Blood Cell Trace(0-2/hpf) (Absent); Urine White Blood Cell 3+(>20/hpf) (Absent)
[2021-06-21] MEDS ORDERED: Piperacillin/Tazobac ADVAN 3.375 GM in NS 0.9% 100 ml BAG 100 ML IV ONE (21:39)
[2021-06-21] MEDS: Enoxaparin 40 MG/0.4 ML SYR SUBCUT SCH (21:41)
[2021-06-21] MEDS: CMCS: Simvastatin 20 mg TAB (NF) PO SCH (21:44)
[2021-06-21] MEDS ORDERED: Zosyn per Pharmacy NOTE FOLLOW UP SCH (22:00)
[2021-06-22] MEDS: ZOSYN 3.375 GM Q8H per EXTENDED INFUSION IV SCH ×3 (03:18→17:34)
[2021-06-22 04:45] LABS: ABS Eosinophils 0.1 10^3/ul (0-0.6); ABS Lymphocytes 0.5 10^3/ul (1.0-4.8); ABS Monocytes 0.9 10^3/ul (0-0.8); ABS Neutrophils 13.3 10^3/ul (1.5-7.7); Eosinophil % 0.7 %; Hematocrit 29 % (35-47); Hemoglobin 9.8 g/dL (12.0-16.0); Lymphocyte % 3.1 %; Mean Corpuscular HGB Conc 34 g/dL (31-36); Mean Corpuscular Hemoglobin 29 pg (27-31); Mean Corpuscular Volume 87 fL (80-97); Mean Platelet Volume 7.1 fL (7.4-10.4); Nucleated Red Blood Cells % 0.1; Platelet Count 342 10^3/uL (150-450); Red Blood Count 3.34 10^6 /uL (3.70-4.87); Red Cell Distribution Width 16 % (10-15); White Blood Count 14.8 10^3/uL (3.5-10.8)
[2021-06-22 05:02] LABS: Calcium 7.5 mg/dL (8.6-10.3); Potassium 3.5 mmol/L (3.5-5.0); eGFR CKD-EPI 32.7 (>60)
[2021-06-22] MEDS: Bacitracin OINTMENT TUBE TOPICAL SCH (08:37)
[2021-06-22] MEDS: Collagenase 250 units/gm OINT 1 tube TOPICAL SCH (08:37)
[2021-06-22] MEDS: Cholecalciferol (VIT D3) 1,000 unit TAB PO SCH (08:38)
[2021-06-22] MEDS: CMCS: Simvastatin 20 mg TAB (NF) PO SCH (22:46)
[2021-06-22] MEDS: Enoxaparin 40 MG/0.4 ML SYR SUBCUT SCH (22:46)
[2021-06-23] MEDS: ZOSYN 3.375 GM Q8H per EXTENDED INFUSION IV SCH ×3 (02:05→17:38)
[2021-06-23 04:49] LABS: ABS Basophils 0.1 10^3/ul (0-0.2); ABS Lymphocytes 0.3 10^3/ul (1.0-4.8); ABS Monocytes 1.1 10^3/ul (0-0.8); ABS Neutrophils 17.9 10^3/ul (1.5-7.7); Eosinophil % 0.1 %; Hematocrit 33 % (35-47); Hemoglobin 10.5 g/dL (12.0-16.0); Lymphocyte % 1.4 %; Mean Corpuscular HGB Conc 32 g/dL (31-36); Mean Corpuscular Hemoglobin 28 pg (27-31); Mean Corpuscular Volume 88 fL (80-97); Mean Platelet Volume 7.2 fL (7.4-10.4); Platelet Count 430 10^3/uL (150-450); Red Blood Count 3.71 10^6 /uL (3.70-4.87); Red Cell Distribution Width 16 % (10-15); White Blood Count 19.4 10^3/uL (3.5-10.8)
[2021-06-23 05:06] LABS: Calcium 7.7 mg/dL (8.6-10.3); Potassium 3.4 mmol/L (3.5-5.0); eGFR CKD-EPI 32.7 (>60)
[2021-06-23] MEDS ORDERED: Potassium Chlor 20 meq TAB.ER PO ONE (07:27)
[2021-06-23 08:02] LABS: C Reactive Protein 266.03 mg/L (<8.01)
[2021-06-23] MEDS ORDERED: Potassium Chloride LIQUID 20 MEQ/15 ML LIQUID PO ONE (09:00)
[2021-06-23] MEDS: Collagenase 250 units/gm OINT 1 tube TOPICAL SCH (09:12)
[2021-06-23] MEDS: Cholecalciferol (VIT D3) 1,000 unit TAB PO SCH (09:12)
[2021-06-23] MEDS: Bacitracin OINTMENT TUBE TOPICAL SCH (09:12)
[2021-06-23] MEDS: metroNIDAZOLE IV 500 MG/100ML 500 MG/100 ML BAG IVPB SCH ×2 (13:44→19:44)
[2021-06-23] MEDS: NS 0.9% 1000 ml BAG 1,000 ML IV SCH (19:40)
[2021-06-23] MEDS: CMCS: Simvastatin 20 mg TAB (NF) PO SCH (19:49)
[2021-06-23] MEDS: Enoxaparin 40 MG/0.4 ML SYR SUBCUT SCH (20:00)
[2021-06-24] MEDS: ZOSYN 3.375 GM Q8H per EXTENDED INFUSION IV SCH ×3 (02:36→18:07)
[2021-06-24] MEDS: metroNIDAZOLE IV 500 MG/100ML 500 MG/100 ML BAG IVPB SCH ×3 (04:27→20:17)
[2021-06-24 06:52] LABS: ABS Lymphocytes 0.3 10^3/ul (1.0-4.8); ABS Monocytes 1.2 10^3/ul (0-0.8); ABS Neutrophils 16.7 10^3/ul (1.5-7.7); Eosinophil % 0.2 %; Hematocrit 31 % (35-47); Hemoglobin 9.6 g/dL (12.0-16.0); Lymphocyte % 1.7 %; Mean Corpuscular HGB Conc 31 g/dL (31-36); Mean Corpuscular Hemoglobin 28 pg (27-31); Mean Corpuscular Volume 91 fL (80-97); Mean Platelet Volume 7.1 fL (7.4-10.4); Platelet Count 420 10^3/uL (150-450); Red Blood Count 3.43 10^6 /uL (3.70-4.87); Red Cell Distribution Width 17 % (10-15); White Blood Count 18.2 10^3/uL (3.5-10.8)
[2021-06-24 07:15] LABS: Albumin 1.7 g/dL (3.2-5.2); Calcium 7.1 mg/dL (8.6-10.3); Magnesium 2.2 mg/dL (1.9-2.7); Potassium 3.6 mmol/L (3.5-5.0); Total Bilirubin 0.7 mg/dL (0.2-1.0)
[2021-06-24 07:21] LABS: Albumin/Globulin Ratio 0.7 (1-3); Globulin 2.3 g/dL (2-4); eGFR CKD-EPI 32.9 (>60)
[2021-06-24] MEDS ORDERED: Potassium Chlor 20 meq TAB.ER PO ONE (08:57)
[2021-06-24] MEDS: NS 0.9% 1000 ml BAG 1,000 ML IV SCH (09:33)
[2021-06-24] MEDS: Cholecalciferol (VIT D3) 1,000 unit TAB PO SCH (09:33)
[2021-06-24] MEDS: Collagenase 250 units/gm OINT 1 tube TOPICAL SCH (09:35)
[2021-06-24] MEDS: Bacitracin OINTMENT TUBE TOPICAL SCH (09:36)
[2021-06-24] MEDS: CMCS: Simvastatin 20 mg TAB (NF) PO SCH (20:18)
[2021-06-24] MEDS: Enoxaparin 40 MG/0.4 ML SYR SUBCUT SCH (20:18)
[2021-06-25] MEDS: ZOSYN 3.375 GM Q8H per EXTENDED INFUSION IV SCH ×3 (02:18→19:03)
[2021-06-25] MEDS: metroNIDAZOLE IV 500 MG/100ML 500 MG/100 ML BAG IVPB SCH ×3 (04:00→22:11)
[2021-06-25 09:00] LABS: ABS Eosinophils 0.1 10^3/ul (0-0.6); ABS Lymphocytes 0.3 10^3/ul (1.0-4.8); ABS Neutrophils 14.5 10^3/ul (1.5-7.7); Eosinophil % 0.6 %; Hematocrit 31 % (35-47); Hemoglobin 9.7 g/dL (12.0-16.0); Lymphocyte % 2.2 %; Mean Corpuscular HGB Conc 32 g/dL (31-36); Mean Corpuscular Hemoglobin 29 pg (27-31); Mean Corpuscular Volume 91 fL (80-97); Mean Platelet Volume 6.9 fL (7.4-10.4); Platelet Count 483 10^3/uL (150-450); Red Blood Count 3.38 10^6 /uL (3.70-4.87); Red Cell Distribution Width 17 % (10-15)
[2021-06-25 09:18] LABS: Albumin 1.9 g/dL (3.2-5.2); Albumin/Globulin Ratio 0.7 (1-3); C Reactive Protein 204.46 mg/L (<8.01); Calcium 7.5 mg/dL (8.6-10.3); Globulin 2.6 g/dL (2-4); Magnesium 2.2 mg/dL (1.9-2.7); Potassium 3.8 mmol/L (3.5-5.0); Total Bilirubin 0.5 mg/dL (0.2-1.0); Total Protein 4.5 g/dL (6.4-8.9); eGFR CKD-EPI 37.2 (>60)
[2021-06-25] MEDS: Cholecalciferol (VIT D3) 1,000 unit TAB PO SCH (10:27)
[2021-06-25] MEDS: Bacitracin OINTMENT TUBE TOPICAL SCH (10:32)
[2021-06-25] MEDS: Collagenase 250 units/gm OINT 1 tube TOPICAL SCH (10:33)
[2021-06-25] MEDS: CMCS: Simvastatin 20 mg TAB (NF) PO SCH (22:10)
[2021-06-25] MEDS: Enoxaparin 40 MG/0.4 ML SYR SUBCUT SCH (22:11)
[2021-06-26] MEDS: ZOSYN 3.375 GM Q8H per EXTENDED INFUSION IV SCH (03:10)
[2021-06-26] MEDS: metroNIDAZOLE IV 500 MG/100ML 500 MG/100 ML BAG IVPB SCH ×3 (03:10→21:08)
[2021-06-26 07:08] LABS: ABS Eosinophils 0.2 10^3/ul (0-0.6); ABS Lymphocytes 0.3 10^3/ul (1.0-4.8); ABS Monocytes 0.8 10^3/ul (0-0.8); ABS Neutrophils 11.3 10^3/ul (1.5-7.7); Eosinophil % 1.2 %; Hematocrit 32 % (35-47); Hemoglobin 10.1 g/dL (12.0-16.0); Lymphocyte % 2.8 %; Mean Corpuscular HGB Conc 32 g/dL (31-36); Mean Corpuscular Hemoglobin 29 pg (27-31); Mean Corpuscular Volume 91 fL (80-97); Mean Platelet Volume 6.9 fL (7.4-10.4); Platelet Count 549 10^3/uL (150-450); Red Blood Count 3.52 10^6 /uL (3.70-4.87); Red Cell Distribution Width 17 % (10-15); White Blood Count 12.7 10^3/uL (3.5-10.8)
[2021-06-26 07:25] LABS: Albumin/Globulin Ratio 0.7 (1-3); C Reactive Protein 188.76 mg/L (<8.01); Calcium 7.6 mg/dL (8.6-10.3); Globulin 2.8 g/dL (2-4); Potassium 3.8 mmol/L (3.5-5.0); Total Bilirubin 0.5 mg/dL (0.2-1.0); Total Protein 4.8 g/dL (6.4-8.9); eGFR CKD-EPI 39.8 (>60)
[2021-06-26] MEDS: NS 0.9% 1000 ml BAG 1,000 ML IV SCH (10:00)
[2021-06-26] MEDS: Cefepime ADVAN 1 GM in NS 0.9% 50 ML 50 ML IVPB SCH ×2 (10:30→21:13)
[2021-06-26] MEDS: Cefepime 1 GM in Dextrose 1 GM/50 ML BAG IV SCH ×2 (12:00→22:24)
[2021-06-26] MEDS: Cholecalciferol (VIT D3) 1,000 unit TAB PO SCH (12:18)
[2021-06-26] MEDS ORDERED: Gelfoam Sponge SIZE 100 SPONGE TOPICAL ONE (12:55)
[2021-06-26] MEDS: Bacitracin OINTMENT TUBE TOPICAL SCH (18:40)
[2021-06-26] MEDS: Collagenase 250 units/gm OINT 1 tube TOPICAL SCH (18:40)
[2021-06-26] MEDS: Enoxaparin 40 MG/0.4 ML SYR SUBCUT SCH (21:07)
[2021-06-26] MEDS: CMCS: Simvastatin 20 mg TAB (NF) PO SCH (22:24)
[2021-06-27] MEDS: metroNIDAZOLE IV 500 MG/100ML 500 MG/100 ML BAG IVPB SCH ×3 (03:30→22:31)
[2021-06-27] MEDS: NS 0.9% 1000 ml BAG 1,000 ML IV SCH (07:29)
[2021-06-27 08:40] LABS: ABS Eosinophils 0.1 10^3/ul (0-0.6); ABS Lymphocytes 0.3 10^3/ul (1.0-4.8); ABS Monocytes 0.7 10^3/ul (0-0.8); ABS Neutrophils 9.5 10^3/ul (1.5-7.7); Eosinophil % 0.9 %; Hematocrit 32 % (35-47); Hemoglobin 10.1 g/dL (12.0-16.0); Lymphocyte % 2.5 %; Mean Corpuscular HGB Conc 31 g/dL (31-36); Mean Corpuscular Hemoglobin 29 pg (27-31); Mean Corpuscular Volume 92 fL (80-97); Mean Platelet Volume 6.8 fL (7.4-10.4); Platelet Count 566 10^3/uL (150-450); Red Blood Count 3.53 10^6 /uL (3.70-4.87); Red Cell Distribution Width 17 % (10-15); White Blood Count 10.6 10^3/uL (3.5-10.8)
[2021-06-27 08:58] LABS: Albumin/Globulin Ratio 0.7 (1-3); C Reactive Protein 163.97 mg/L (<8.01); Calcium 7.6 mg/dL (8.6-10.3); Globulin 2.8 g/dL (2-4); Potassium 3.9 mmol/L (3.5-5.0); Total Bilirubin 0.4 mg/dL (0.2-1.0); Total Protein 4.8 g/dL (6.4-8.9); eGFR CKD-EPI 42.9 (>60)
[2021-06-27] MEDS: Cholecalciferol (VIT D3) 1,000 unit TAB PO SCH (10:34)
[2021-06-27] MEDS: Cefepime 1 GM in Dextrose 1 GM/50 ML BAG IV SCH (10:37)
[2021-06-27] MEDS: Bacitracin OINTMENT TUBE TOPICAL SCH (14:00)
[2021-06-27] MEDS: Collagenase 250 units/gm OINT 1 tube TOPICAL SCH (14:00)
[2021-06-27 14:58] LABS: PCO2 Arterial 60 mmHg (35-45); PO2 Arterial 69 mmHg (80-100)
[2021-06-27 19:22] LABS: Urine Appearance Cloudy; Urine Bilirubin Negative (Negative); Urine Blood Negative (Negative); Urine Color Yellow; Urine Glucose Negative (Negative); Urine Ketones Negative (Negative); Urine Nitrite Negative (Negative); Urine Protein 1+(30 mg/dL) (Negative); Urine Specific Gravity 1.013 (1.002-1.030); Urine Urobilinogen Negative (Negative)
[2021-06-27 19:26] LABS: Urine Bacteria 1+ (Absent); Urine Red Blood Cell 2+(6-10/hpf) (Absent); Urine Squamous Epithelial Cell Present (Absent); Urine White Blood Cell 3+(>20/hpf) (Absent)
[2021-06-27] MEDS: Enoxaparin 40 MG/0.4 ML SYR SUBCUT SCH (22:38)
[2021-06-27] MEDS: CMCS: Simvastatin 20 mg TAB (NF) PO SCH (23:56)
[2021-06-28] MEDS: metroNIDAZOLE IV 500 MG/100ML 500 MG/100 ML BAG IVPB SCH ×2 (05:08→12:58)
[2021-06-28 08:06] LABS: ABS Basophils 0.1 10^3/ul (0-0.2); ABS Eosinophils 0.1 10^3/ul (0-0.6); ABS Lymphocytes 0.3 10^3/ul (1.0-4.8); ABS Monocytes 0.7 10^3/ul (0-0.8); ABS Neutrophils 8.2 10^3/ul (1.5-7.7); Eosinophil % 1.5 %; Hematocrit 32 % (35-47); Hemoglobin 10.2 g/dL (12.0-16.0); Lymphocyte % 3.5 %; Mean Corpuscular HGB Conc 32 g/dL (31-36); Mean Corpuscular Hemoglobin 30 pg (27-31); Mean Corpuscular Volume 94 fL (80-97); Mean Platelet Volume 7.1 fL (7.4-10.4); Platelet Count 563 10^3/uL (150-450); Red Blood Count 3.45 10^6 /uL (3.70-4.87); Red Cell Distribution Width 17 % (10-15); White Blood Count 9.3 10^3/uL (3.5-10.8)
[2021-06-28 08:21] LABS: Albumin/Globulin Ratio 0.7 (1-3); Calcium 7.9 mg/dL (8.6-10.3); Globulin 2.8 g/dL (2-4); Potassium 4.2 mmol/L (3.5-5.0); Total Bilirubin 0.3 mg/dL (0.2-1.0); Total Protein 4.8 g/dL (6.4-8.9); eGFR CKD-EPI 44.1 (>60)
[2021-06-28] MEDS: Cholecalciferol (VIT D3) 1,000 unit TAB PO SCH (10:24)
[2021-06-28] MEDS: Collagenase 250 units/gm OINT 1 tube TOPICAL SCH (10:26)
[2021-06-28] MEDS: Bacitracin OINTMENT TUBE TOPICAL SCH (10:26)
[2021-06-28] MEDS: Cefepime 1 GM in Dextrose 1 GM/50 ML BAG IV SCH ×2 (11:36)
[2021-06-28] MEDS: Enoxaparin 40 MG/0.4 ML SYR SUBCUT SCH (21:44)
[2021-06-28] MEDS: CMCS: Simvastatin 20 mg TAB (NF) PO SCH (21:45)
[2021-06-29 06:02] LABS: ABS Basophils 0.1 10^3/ul (0-0.2); ABS Eosinophils 0.2 10^3/ul (0-0.6); ABS Lymphocytes 0.4 10^3/ul (1.0-4.8); ABS Monocytes 0.5 10^3/ul (0-0.8); Eosinophil % 2.3 %; Hematocrit 33 % (35-47); Hemoglobin 10.3 g/dL (12.0-16.0); Lymphocyte % 5.1 %; Mean Corpuscular HGB Conc 31 g/dL (31-36); Mean Corpuscular Hemoglobin 29 pg (27-31); Mean Corpuscular Volume 93 fL (80-97); Platelet Count 564 10^3/uL (150-450); Red Blood Count 3.57 10^6 /uL (3.70-4.87); Red Cell Distribution Width 17 % (10-15); White Blood Count 7.1 10^3/uL (3.5-10.8)
[2021-06-29 06:24] LABS: Albumin 2.1 g/dL (3.2-5.2); Albumin/Globulin Ratio 0.8 (1-3); C Reactive Protein 73.07 mg/L (<8.01); Globulin 2.7 g/dL (2-4); Total Bilirubin 0.4 mg/dL (0.2-1.0); Total Protein 4.8 g/dL (6.4-8.9); eGFR CKD-EPI 52.2 (>60)
[2021-06-29] MEDS: Cholecalciferol (VIT D3) 1,000 unit TAB PO SCH (09:45)
[2021-06-29] MEDS: Bacitracin OINTMENT TUBE TOPICAL SCH (11:20)
[2021-06-29] MEDS: Collagenase 250 units/gm OINT 1 tube TOPICAL SCH (11:21)
[2021-06-29] MEDS: Enoxaparin 40 MG/0.4 ML SYR SUBCUT SCH (22:47)
[2021-06-29] MEDS: CMCS: Simvastatin 20 mg TAB (NF) PO SCH (22:48)
[2021-06-30 06:05] LABS: ABS Eosinophils 0.2 10^3/ul (0-0.6); ABS Lymphocytes 0.4 10^3/ul (1.0-4.8); ABS Monocytes 0.5 10^3/ul (0-0.8); ABS Neutrophils 5.6 10^3/ul (1.5-7.7); Eosinophil % 2.8 %; Hematocrit 32 % (35-47); Hemoglobin 10.1 g/dL (12.0-16.0); Lymphocyte % 5.9 %; Mean Corpuscular HGB Conc 31 g/dL (31-36); Mean Corpuscular Hemoglobin 29 pg (27-31); Mean Corpuscular Volume 91 fL (80-97); Mean Platelet Volume 6.9 fL (7.4-10.4); Platelet Count 595 10^3/uL (150-450); Red Blood Count 3.55 10^6 /uL (3.70-4.87); Red Cell Distribution Width 17 % (10-15); White Blood Count 6.8 10^3/uL (3.5-10.8)
[2021-06-30 06:35] LABS: Albumin 2.2 g/dL (3.2-5.2); Albumin/Globulin Ratio 0.8 (1-3); Calcium 8.1 mg/dL (8.6-10.3); Globulin 2.6 g/dL (2-4); Total Bilirubin 0.4 mg/dL (0.2-1.0); Total Protein 4.8 g/dL (6.4-8.9)
[2021-06-30] MEDS: Cholecalciferol (VIT D3) 1,000 unit TAB PO SCH (09:55)
[2021-06-30] MEDS: Bacitracin OINTMENT TUBE TOPICAL SCH (10:45)
[2021-06-30] MEDS: Collagenase 250 units/gm OINT 1 tube TOPICAL SCH (10:45)
[2021-06-30] MEDS: CMCS: Simvastatin 20 mg TAB (NF) PO SCH (20:19)
[2021-07-01 05:50] LABS: ABS Basophils 0.1 10^3/ul (0-0.2); ABS Eosinophils 0.2 10^3/ul (0-0.6); ABS Lymphocytes 0.5 10^3/ul (1.0-4.8); ABS Monocytes 0.6 10^3/ul (0-0.8); ABS Neutrophils 4.7 10^3/ul (1.5-7.7); Eosinophil % 2.6 %; Hematocrit 32 % (35-47); Hemoglobin 10.1 g/dL (12.0-16.0); Lymphocyte % 7.9 %; Mean Corpuscular HGB Conc 32 g/dL (31-36); Mean Corpuscular Hemoglobin 29 pg (27-31); Mean Corpuscular Volume 92 fL (80-97); Mean Platelet Volume 6.8 fL (7.4-10.4); Platelet Count 574 10^3/uL (150-450); Red Blood Count 3.45 10^6 /uL (3.70-4.87); Red Cell Distribution Width 17 % (10-15)
[2021-07-01 06:25] LABS: Albumin 2.2 g/dL (3.2-5.2); Albumin/Globulin Ratio 0.8 (1-3); Calcium 8.3 mg/dL (8.6-10.3); Globulin 2.7 g/dL (2-4); Potassium 4.3 mmol/L (3.5-5.0); Total Bilirubin 0.3 mg/dL (0.2-1.0); Total Protein 4.9 g/dL (6.4-8.9); eGFR CKD-EPI 72.9 (>60)
[2021-07-01] MEDS: Cholecalciferol (VIT D3) 1,000 unit TAB PO SCH (10:08)
[2021-07-01] MEDS: Collagenase 250 units/gm OINT 1 tube TOPICAL SCH (10:09)
[2021-07-01] MEDS: Bacitracin OINTMENT TUBE TOPICAL SCH (10:09)
[2021-07-01] MEDS: CMCS: Simvastatin 20 mg TAB (NF) PO SCH (21:24)
[2021-07-02 07:28] LABS: ABS Eosinophils 0.2 10^3/ul (0-0.6); ABS Lymphocytes 0.5 10^3/ul (1.0-4.8); ABS Monocytes 0.5 10^3/ul (0-0.8); ABS Neutrophils 4.6 10^3/ul (1.5-7.7); Eosinophil % 3.1 %; Hematocrit 31 % (35-47); Lymphocyte % 9.1 %; Mean Corpuscular HGB Conc 33 g/dL (31-36); Mean Corpuscular Hemoglobin 30 pg (27-31); Mean Corpuscular Volume 91 fL (80-97); Nucleated Red Blood Cells % 0.1; Platelet Count 533 10^3/uL (150-450); Red Blood Count 3.37 10^6 /uL (3.70-4.87); Red Cell Distribution Width 17 % (10-15); White Blood Count 5.9 10^3/uL (3.5-10.8)
[2021-07-02 07:37] LABS: Albumin 2.3 g/dL (3.2-5.2); Albumin/Globulin Ratio 0.9 (1-3); Calcium 8.2 mg/dL (8.6-10.3); Globulin 2.7 g/dL (2-4); Potassium 4.1 mmol/L (3.5-5.0); Total Bilirubin 0.3 mg/dL (0.2-1.0); eGFR CKD-EPI 72.9 (>60)
[2021-07-02] MEDS: Cholecalciferol (VIT D3) 1,000 unit TAB PO SCH (08:08)
[2021-07-02] MEDS ORDERED: Furosemide 40 mg/4 ml IV VIAL IV SLOW PU ONE (11:56)
[2021-07-02] MEDS: Bacitracin OINTMENT TUBE TOPICAL SCH (13:42)
[2021-07-02] MEDS: Collagenase 250 units/gm OINT 1 tube TOPICAL SCH (13:42)
[2021-07-02] MEDS: CMCS: Simvastatin 20 mg TAB (NF) PO SCH (20:22)
[2021-07-03 06:21] LABS: ABS Basophils 0.1 10^3/ul (0-0.2); ABS Eosinophils 0.2 10^3/ul (0-0.6); ABS Lymphocytes 0.6 10^3/ul (1.0-4.8); ABS Monocytes 0.5 10^3/ul (0-0.8); ABS Neutrophils 4.7 10^3/ul (1.5-7.7); Eosinophil % 3.1 %; Hematocrit 30 % (35-47); Hemoglobin 9.8 g/dL (12.0-16.0); Lymphocyte % 9.4 %; Mean Corpuscular HGB Conc 33 g/dL (31-36); Mean Corpuscular Hemoglobin 29 pg (27-31); Mean Corpuscular Volume 90 fL (80-97); Mean Platelet Volume 7.1 fL (7.4-10.4); Nucleated Red Blood Cells % 0.1; Platelet Count 502 10^3/uL (150-450); Red Blood Count 3.33 10^6 /uL (3.70-4.87); Red Cell Distribution Width 17 % (10-15); White Blood Count 6.1 10^3/uL (3.5-10.8)
[2021-07-03 06:48] LABS: Calcium 8.1 mg/dL (8.6-10.3); Potassium 3.9 mmol/L (3.5-5.0); eGFR CKD-EPI 76.3 (>60)
[2021-07-03 09:40] LABS: Albumin 2.3 g/dL (3.2-5.2); Albumin/Globulin Ratio 0.9 (1-3); Globulin 2.6 g/dL (2-4); Total Bilirubin 0.3 mg/dL (0.2-1.0); Total Protein 4.9 g/dL (6.4-8.9)
[2021-07-03] MEDS: Cholecalciferol (VIT D3) 1,000 unit TAB PO SCH (09:44)
[2021-07-03 10:13] LABS: Venous Bicarbonate HCO3 34.2 mmol/L (24-28)
[2021-07-03] MEDS: Collagenase 250 units/gm OINT 1 tube TOPICAL SCH (12:30)
[2021-07-03] MEDS: Bacitracin OINTMENT TUBE TOPICAL SCH (12:30)
[2021-07-03] MEDS ORDERED: COVID-19 VACCINE, MRNA(MODERNA) BOOSTER/PF 50 MCG/0.25 ML IM ONE (15:00)
[2021-07-03] MEDS ORDERED: Gadobenate (CONTRAST) 529 MG/ML 10 ML SDV IV ONE (15:57)
[2021-07-03] MEDS: CMCS: Simvastatin 20 mg TAB (NF) PO SCH (21:58)
[2021-07-04 06:23] LABS: Corrected Retic Count 2.3 % (0.5-1.5); Hematocrit for Retic CNT 31 % (35-47); RBC Retic Count 3.42 10^6/uL (3.70-4.87)
[2021-07-04 06:44] LABS: Activated Partial Thrombo Time 34.5 seconds (26.0-38.0); INR 1.79 (0.86-1.15)
[2021-07-04 08:07] LABS: ABS Basophils 0.1 10^3/ul (0-0.2); ABS Eosinophils 0.2 10^3/ul (0-0.6); ABS Lymphocytes 0.6 10^3/ul (1.0-4.8); ABS Monocytes 0.4 10^3/ul (0-0.8); ABS Neutrophils 4.6 10^3/ul (1.5-7.7); Eosinophil % 3.5 %; Hematocrit 31 % (35-47); Lymphocyte % 9.8 %; Mean Corpuscular HGB Conc 32 g/dL (31-36); Mean Corpuscular Hemoglobin 29 pg (27-31); Mean Corpuscular Volume 90 fL (80-97); Nucleated Red Blood Cells % 0.1; Platelet Count 481 10^3/uL (150-450); Red Blood Count 3.46 10^6 /uL (3.70-4.87); Red Cell Distribution Width 17 % (10-15); White Blood Count 5.9 10^3/uL (3.5-10.8)
[2021-07-04 08:18] LABS: Albumin 2.3 g/dL (3.2-5.2); Albumin/Globulin Ratio 0.9 (1-3); Globulin 2.6 g/dL (2-4); Potassium 4.3 mmol/L (3.5-5.0); Total Bilirubin 0.3 mg/dL (0.2-1.0); Total Protein 4.9 g/dL (6.4-8.9); eGFR CKD-EPI 78.7 (>60)
[2021-07-04] MEDS: Cholecalciferol (VIT D3) 1,000 unit TAB PO SCH (10:00)
[2021-07-04] MEDS ORDERED: Aspirin EC 81 mg TAB.EC (enteric coated) PO SCH (11:00)
[2021-07-04] MEDS: Bacitracin OINTMENT TUBE TOPICAL SCH (11:28)
[2021-07-04] MEDS: Collagenase 250 units/gm OINT 1 tube TOPICAL SCH (11:29)
[2021-07-04 15:52] VITALS: BP 134/41
[2021-07-04 18:56] LABS: HDL Cholesterol 29.3 mg/dL
[2021-07-05 12:32] LABS: Kappa Free Light Chain 8.85 mg/dL; Lambda Free Light Chain, S 5.76 mg/dL
== END 2021-07-04 15:30 | DRG 371 ==
LOC: ED 12:22 → SUATTDRO 18:02 → EDHOLD 18:02 → MEDTELE 20:14
PROVIDERS: ADMIT Internal Medicine; ATTEND Hospitalist